=== PATIENT | male | born 1975 | race Caucasian/White ===

== ENCOUNTER 2022-07-17 14:05 | Outpatient (REF) | payer BC, SELFPAY | END 2022-07-17 14:06 | disposition home or self-care (01) | LOC: HO.BBR 14:05 | PROVIDERS: Visit Provider Internal Medicine Cardiovascular Disease | DX: Z13.89 Encounter for screening for other disorder (principal) ==

== ENCOUNTER → 2022-08-03 13:12 | Outpatient (BNV) | payer BC, SELFPAY | PROVIDERS: PCP Internal Medicine Cardiovascular Disease; Referring Provider Internal Medicine Cardiovascular Disease; Visit Provider Internal Medicine Medical Oncology | DX: E83.110 Hereditary hemochromatosis (principal) | CPT/HCPCS: 99204; 99213 ==

== ENCOUNTER 2022-08-14 12:37 | Outpatient (REF) | payer BC, SELFPAY ==
[2022-08-14 12:52] LABS: MANUAL DIFF FLAG NO
[2022-08-14 12:54] LABS: Basophils Absolute Auto 0.1 X10*3/uL (0.0-0.2); Basophils Percent Auto 0.4 % (0-2); Eosinophils Absolute Auto 0.1 X10*3/uL (0.0-0.4); Eosinophils Percent Auto 1.1 % (0-4); Hematocrit 45.4 % (42.0-52.0); Hemoglobin 15.8 g/dl (14.0-18.0); Imm Gran Abs Auto 0.04 X10*3/uL (0.00-0.03); Imm Gran Pct Auto 0.3 % (0.0-0.4); Lymphocytes Absolute Auto 3.1 X10*3/uL (1.2-4.9); Lymphocytes Percent Auto 26.2 % (20-40); Mean Corpuscular HGB Conc 34.8 g/dl (31.0-36.0); Mean Platelet Volume 9.3 fL (9.4-12.4); Monocytes Absolute Auto 0.7 X10*3/uL (0.1-1.2); Monocytes Percent Auto 5.6 % (2-11); Neutrophils Absolute Auto 7.8 x10*3/uL (2.0-8.3); Neutrophils Percent Auto 66.4 % (45-73); Platelet Count 213 X10*3/uL (160-400); Red Cell Distribution Width 12.5 % (11.0-16.0); White Blood Count 11.7 X10*3/uL (4.8-10.8)
[2022-08-14 13:32] LABS: Iron 107 mcg/dL (45-160); Percent Iron Saturation 39 % (15-50); Total Iron Binding Capacity 276 mcg/dL (228-428); Unsaturated Iron Binding 169 ug/dL
[2022-08-14 13:52] LABS: Ferritin 252 ng/mL (20-250)
== END 2022-08-14 12:38 | disposition home or self-care (01) ==
LOC: HO.BBR 12:37
PROVIDERS: Visit Provider Internal Medicine Medical Oncology
DX: E83.110 Hereditary hemochromatosis (principal)
CPT/HCPCS: 36415; 82728; 83540; 85025

== ENCOUNTER 2022-09-13 12:58 | Outpatient (REF) | payer BC, SELFPAY ==
[2022-09-13 13:16] LABS: MANUAL DIFF FLAG NO
[2022-09-13 13:19] LABS: Basophils Absolute Auto 0.1 X10*3/uL (0.0-0.2); Basophils Percent Auto 0.9 % (0-2); Eosinophils Absolute Auto 0.1 X10*3/uL (0.0-0.4); Eosinophils Percent Auto 1.4 % (0-4); Hematocrit 44.9 % (42.0-52.0); Imm Gran Abs Auto 0.02 X10*3/uL (0.00-0.03); Imm Gran Pct Auto 0.2 % (0.0-0.4); Lymphocytes Absolute Auto 3.3 X10*3/uL (1.2-4.9); Lymphocytes Percent Auto 38.5 % (20-40); Mean Corpuscular HGB Conc 35.6 g/dl (31.0-36.0); Mean Corpuscular Hemoglobin 31.3 pg (27.0-33.0); Mean Corpuscular Volume 87.7 fL (80.0-98.0); Mean Platelet Volume 9.6 fL (9.4-12.4); Monocytes Absolute Auto 0.7 X10*3/uL (0.1-1.2); Monocytes Percent Auto 7.9 % (2-11); Neutrophils Absolute Auto 4.3 x10*3/uL (2.0-8.3); Neutrophils Percent Auto 51.1 % (45-73); Platelet Count 207 X10*3/uL (160-400); Red Blood Count 5.12 X10*6/uL (4.60-5.80); Red Cell Distribution Width 12.1 % (11.0-16.0); White Blood Count 8.5 X10*3/uL (4.8-10.8)
[2022-09-13 14:03] LABS: Iron 114 mcg/dL (45-160); Percent Iron Saturation 41 % (15-50); Total Iron Binding Capacity 278 mcg/dL (228-428); Unsaturated Iron Binding 164 ug/dL
[2022-09-13 14:17] LABS: Ferritin 215 ng/mL (20-250)
== END 2022-09-13 12:59 | disposition home or self-care (01) ==
LOC: HO.BBR 12:58
PROVIDERS: Visit Provider Internal Medicine Medical Oncology
DX: E83.110 Hereditary hemochromatosis (principal)
CPT/HCPCS: 36415; 82728; 83540; 85025

== ENCOUNTER 2022-10-15 13:37 | Outpatient (REF) | payer BC, SELFPAY ==
[2022-10-15 14:06] LABS: MANUAL DIFF FLAG NO
[2022-10-15 14:11] LABS: Basophils Absolute Auto 0.1 X10*3/uL (0.0-0.2); Basophils Percent Auto 0.6 % (0-2); Eosinophils Absolute Auto 0.2 X10*3/uL (0.0-0.4); Eosinophils Percent Auto 1.6 % (0-4); Hematocrit 44.7 % (42.0-52.0); Hemoglobin 15.8 g/dl (14.0-18.0); Imm Gran Abs Auto 0.03 X10*3/uL (0.00-0.03); Imm Gran Pct Auto 0.3 % (0.0-0.4); Lymphocytes Absolute Auto 3.5 X10*3/uL (1.2-4.9); Mean Corpuscular HGB Conc 35.3 g/dl (31.0-36.0); Mean Corpuscular Hemoglobin 31.3 pg (27.0-33.0); Mean Corpuscular Volume 88.5 fL (80.0-98.0); Mean Platelet Volume 9.6 fL (9.4-12.4); Monocytes Absolute Auto 0.6 X10*3/uL (0.1-1.2); Monocytes Percent Auto 5.9 % (2-11); Neutrophils Absolute Auto 5.4 x10*3/uL (2.0-8.3); Neutrophils Percent Auto 55.6 % (45-73); Platelet Count 210 X10*3/uL (160-400); Red Blood Count 5.05 X10*6/uL (4.60-5.80); Red Cell Distribution Width 12.1 % (11.0-16.0); White Blood Count 9.8 X10*3/uL (4.8-10.8)
[2022-10-15 14:48] LABS: Iron 119 mcg/dL (45-160); Percent Iron Saturation 45 % (15-50); Total Iron Binding Capacity 267 mcg/dL (228-428); Unsaturated Iron Binding 148 ug/dL
[2022-10-15 14:59] LABS: Ferritin 211 ng/mL (20-250)
== END 2022-10-15 13:38 | disposition home or self-care (01) ==
LOC: HO.BBR 13:37
PROVIDERS: Visit Provider Internal Medicine Medical Oncology
DX: E83.110 Hereditary hemochromatosis (principal)
CPT/HCPCS: 36415; 82728; 83540; 85025

== ENCOUNTER 2022-11-15 08:48 | Outpatient (REF) | payer BC, SELFPAY ==
[2022-11-15 09:02] LABS: MANUAL DIFF FLAG NO
[2022-11-15 09:05] LABS: Basophils Absolute Auto 0.1 X10*3/uL (0.0-0.2); Basophils Percent Auto 0.8 % (0-2); Eosinophils Absolute Auto 0.2 X10*3/uL (0.0-0.4); Eosinophils Percent Auto 2.1 % (0-4); Hematocrit 46.1 % (42.0-52.0); Hemoglobin 16.7 g/dl (14.0-18.0); Imm Gran Abs Auto 0.02 X10*3/uL (0.00-0.03); Imm Gran Pct Auto 0.2 % (0.0-0.4); Lymphocytes Absolute Auto 3.2 X10*3/uL (1.2-4.9); Lymphocytes Percent Auto 37.4 % (20-40); Mean Corpuscular HGB Conc 36.2 g/dl (31.0-36.0); Mean Corpuscular Hemoglobin 31.8 pg (27.0-33.0); Mean Corpuscular Volume 87.8 fL (80.0-98.0); Mean Platelet Volume 9.4 fL (9.4-12.4); Monocytes Absolute Auto 0.6 X10*3/uL (0.1-1.2); Neutrophils Absolute Auto 4.5 x10*3/uL (2.0-8.3); Neutrophils Percent Auto 52.5 % (45-73); Platelet Count 218 X10*3/uL (160-400); Red Blood Count 5.25 X10*6/uL (4.60-5.80); Red Cell Distribution Width 11.9 % (11.0-16.0); White Blood Count 8.6 X10*3/uL (4.8-10.8)
[2022-11-15 10:51] LABS: Ferritin 220 ng/mL (20-250); Iron 107 mcg/dL (45-160); Percent Iron Saturation 44 % (15-50); Total Iron Binding Capacity 244 mcg/dL (228-428); Unsaturated Iron Binding 137 ug/dL
== END 2022-11-15 08:49 | disposition home or self-care (01) ==
LOC: HO.BBR 08:48
PROVIDERS: PCP Internal Medicine Cardiovascular Disease; Visit Provider Internal Medicine Medical Oncology
DX: E83.110 Hereditary hemochromatosis (principal)
CPT/HCPCS: 36415; 82728; 83540; 85025

== ENCOUNTER 2022-12-14 14:42 | Outpatient (REF) | payer BC, SELFPAY ==
[2022-12-14 14:58] LABS: MANUAL DIFF FLAG NO
[2022-12-14 15:01] LABS: Basophils Absolute Auto 0.1 X10*3/uL (0.0-0.2); Basophils Percent Auto 0.8 % (0-2); Eosinophils Absolute Auto 0.1 X10*3/uL (0.0-0.4); Eosinophils Percent Auto 1.6 % (0-4); Hemoglobin 15.9 g/dl (14.0-18.0); Imm Gran Abs Auto 0.02 X10*3/uL (0.00-0.03); Imm Gran Pct Auto 0.2 % (0.0-0.4); Lymphocytes Absolute Auto 3.2 X10*3/uL (1.2-4.9); Lymphocytes Percent Auto 38.5 % (20-40); Mean Corpuscular HGB Conc 35.3 g/dl (31.0-36.0); Mean Corpuscular Volume 87.7 fL (80.0-98.0); Mean Platelet Volume 9.6 fL (9.4-12.4); Monocytes Absolute Auto 0.6 X10*3/uL (0.1-1.2); Monocytes Percent Auto 7.8 % (2-11); Neutrophils Absolute Auto 4.2 x10*3/uL (2.0-8.3); Neutrophils Percent Auto 51.1 % (45-73); Platelet Count 208 X10*3/uL (160-400); Red Blood Count 5.13 X10*6/uL (4.60-5.80); Red Cell Distribution Width 11.9 % (11.0-16.0); White Blood Count 8.3 X10*3/uL (4.8-10.8)
[2022-12-14 15:43] LABS: Iron 126 mcg/dL (45-160); Percent Iron Saturation 49 % (15-50); Total Iron Binding Capacity 256 mcg/dL (228-428); Unsaturated Iron Binding 130 ug/dL
[2022-12-14 15:55] LABS: Ferritin 153 ng/mL (20-250)
== END 2022-12-14 14:43 | disposition home or self-care (01) ==
LOC: HO.BBR 14:42
PROVIDERS: Visit Provider Internal Medicine Medical Oncology
DX: E83.110 Hereditary hemochromatosis (principal)
CPT/HCPCS: 36415; 82728; 83540; 85025

== ENCOUNTER 2023-01-15 12:33 | Outpatient (REF) | payer BC, SELFPAY ==
[2023-01-15 12:45] LABS: MANUAL DIFF FLAG NO
[2023-01-15 12:49] LABS: Basophils Absolute Auto 0.1 X10*3/uL (0.0-0.2); Basophils Percent Auto 0.7 % (0-2); Eosinophils Absolute Auto 0.2 X10*3/uL (0.0-0.4); Eosinophils Percent Auto 2.1 % (0-4); Hematocrit 43.1 % (42.0-52.0); Hemoglobin 15.4 g/dl (14.0-18.0); Imm Gran Abs Auto 0.03 X10*3/uL (0.00-0.03); Imm Gran Pct Auto 0.4 % (0.0-0.4); Lymphocytes Absolute Auto 3.1 X10*3/uL (1.2-4.9); Lymphocytes Percent Auto 37.7 % (20-40); Mean Corpuscular HGB Conc 35.7 g/dl (31.0-36.0); Mean Corpuscular Hemoglobin 31.1 pg (27.0-33.0); Mean Corpuscular Volume 87.1 fL (80.0-98.0); Mean Platelet Volume 9.5 fL (9.4-12.4); Monocytes Absolute Auto 0.6 X10*3/uL (0.1-1.2); Monocytes Percent Auto 7.2 % (2-11); Neutrophils Absolute Auto 4.2 x10*3/uL (2.0-8.3); Neutrophils Percent Auto 51.9 % (45-73); Platelet Count 209 X10*3/uL (160-400); Red Blood Count 4.95 X10*6/uL (4.60-5.80); Red Cell Distribution Width 12.2 % (11.0-16.0); White Blood Count 8.1 X10*3/uL (4.8-10.8)
[2023-01-15 14:09] LABS: Iron 121 mcg/dL (45-160); Percent Iron Saturation 51 % (15-50); Total Iron Binding Capacity 235 mcg/dL (228-428); Unsaturated Iron Binding 114 ug/dL
[2023-01-15 14:23] LABS: Ferritin 149 ng/mL (20-250)
== END 2023-01-15 12:34 | disposition home or self-care (01) ==
LOC: HO.BBR 12:33
PROVIDERS: Visit Provider Internal Medicine Medical Oncology
DX: E83.110 Hereditary hemochromatosis (principal)
CPT/HCPCS: 36415; 82728; 83540; 85025

== ENCOUNTER 2023-02-11 12:43 | Outpatient (REF) | payer BC, SELFPAY ==
[2023-02-11 12:58] LABS: MANUAL DIFF FLAG NO
[2023-02-11 13:01] LABS: Basophils Absolute Auto 0.1 X10*3/uL (0.0-0.2); Basophils Percent Auto 0.6 % (0-2); Eosinophils Absolute Auto 0.1 X10*3/uL (0.0-0.4); Eosinophils Percent Auto 0.9 % (0-4); Hematocrit 42.6 % (42.0-52.0); Hemoglobin 15.3 g/dl (14.0-18.0); Imm Gran Abs Auto 0.04 X10*3/uL (0.00-0.03); Imm Gran Pct Auto 0.3 % (0.0-0.4); Lymphocytes Percent Auto 25.5 % (20-40); Mean Corpuscular HGB Conc 35.9 g/dl (31.0-36.0); Mean Corpuscular Hemoglobin 32.3 pg (27.0-33.0); Mean Corpuscular Volume 89.9 fL (80.0-98.0); Monocytes Absolute Auto 0.6 X10*3/uL (0.1-1.2); Monocytes Percent Auto 5.2 % (2-11); Neutrophils Percent Auto 67.5 % (45-73); Platelet Count 211 X10*3/uL (160-400); Red Blood Count 4.74 X10*6/uL (4.60-5.80); Red Cell Distribution Width 12.5 % (11.0-16.0); White Blood Count 11.8 X10*3/uL (4.8-10.8)
[2023-02-11 15:16] LABS: Iron 95 mcg/dL (45-160); Percent Iron Saturation 39 % (15-50); Total Iron Binding Capacity 242 mcg/dL (228-428); Unsaturated Iron Binding 147 ug/dL
[2023-02-11 15:18] LABS: Ferritin 140 ng/mL (20-250)
== END 2023-02-11 12:44 | disposition home or self-care (01) ==
LOC: HO.BBR 12:43
PROVIDERS: Visit Provider Internal Medicine Medical Oncology
DX: E83.110 Hereditary hemochromatosis (principal)
CPT/HCPCS: 36415; 82728; 83540; 85025

== ENCOUNTER 2023-03-14 13:44 | Outpatient (REF) | payer BC, SELFPAY ==
[2023-03-14 13:53] LABS: MANUAL DIFF FLAG NO
[2023-03-14 13:54] LABS: Basophils Absolute Auto 0.1 X10*3/uL (0.0-0.2); Basophils Percent Auto 0.7 % (0-2); Eosinophils Absolute Auto 0.2 X10*3/uL (0.0-0.4); Eosinophils Percent Auto 1.6 % (0-4); Hemoglobin 16.8 g/dl (14.0-18.0); Imm Gran Abs Auto 0.04 X10*3/uL (0.00-0.03); Imm Gran Pct Auto 0.4 % (0.0-0.4); Lymphocytes Absolute Auto 3.8 X10*3/uL (1.2-4.9); Lymphocytes Percent Auto 39.9 % (20-40); Mean Corpuscular HGB Conc 35.7 g/dl (31.0-36.0); Mean Corpuscular Hemoglobin 31.3 pg (27.0-33.0); Mean Corpuscular Volume 87.5 fL (80.0-98.0); Mean Platelet Volume 9.7 fL (9.4-12.4); Monocytes Absolute Auto 0.7 X10*3/uL (0.1-1.2); Monocytes Percent Auto 7.1 % (2-11); Neutrophils Absolute Auto 4.8 x10*3/uL (2.0-8.3); Neutrophils Percent Auto 50.3 % (45-73); Platelet Count 236 X10*3/uL (160-400); Red Blood Count 5.37 X10*6/uL (4.60-5.80); Red Cell Distribution Width 12.3 % (11.0-16.0); White Blood Count 9.5 X10*3/uL (4.8-10.8)
[2023-03-14 14:39] LABS: Iron 103 mcg/dL (45-160); Percent Iron Saturation 39 % (15-50); Total Iron Binding Capacity 263 mcg/dL (228-428); Unsaturated Iron Binding 160 ug/dL
[2023-03-14 14:54] LABS: Ferritin 132 ng/mL (20-250)
== END 2023-03-14 13:45 | disposition home or self-care (01) ==
LOC: HO.BBR 13:44
PROVIDERS: Visit Provider Internal Medicine Medical Oncology
DX: E83.110 Hereditary hemochromatosis (principal)
CPT/HCPCS: 36415; 82728; 83540; 85025

== ENCOUNTER 2023-04-09 12:43 | Outpatient (REF) | payer BC, SELFPAY ==
[2023-04-09 12:58] LABS: MANUAL DIFF FLAG NO
[2023-04-09 13:02] LABS: Basophils Absolute Auto 0.1 X10*3/uL (0.0-0.2); Basophils Percent Auto 0.7 % (0-2); Eosinophils Absolute Auto 0.1 X10*3/uL (0.0-0.4); Eosinophils Percent Auto 1.7 % (0-4); Hematocrit 44.2 % (42.0-52.0); Hemoglobin 15.7 g/dl (14.0-18.0); Imm Gran Abs Auto 0.02 X10*3/uL (0.00-0.03); Imm Gran Pct Auto 0.2 % (0.0-0.4); Lymphocytes Absolute Auto 2.9 X10*3/uL (1.2-4.9); Lymphocytes Percent Auto 34.7 % (20-40); Mean Corpuscular HGB Conc 35.5 g/dl (31.0-36.0); Mean Corpuscular Hemoglobin 30.9 pg (27.0-33.0); Mean Platelet Volume 9.6 fL (9.4-12.4); Monocytes Absolute Auto 0.5 X10*3/uL (0.1-1.2); Monocytes Percent Auto 6.6 % (2-11); Neutrophils Absolute Auto 4.6 x10*3/uL (2.0-8.3); Neutrophils Percent Auto 56.1 % (45-73); Platelet Count 207 X10*3/uL (160-400); Red Blood Count 5.08 X10*6/uL (4.60-5.80); White Blood Count 8.2 X10*3/uL (4.8-10.8)
[2023-04-09 14:31] LABS: Iron 100 mcg/dL (45-160); Percent Iron Saturation 40 % (15-50); Total Iron Binding Capacity 248 mcg/dL (228-428); Unsaturated Iron Binding 148 ug/dL
[2023-04-09 14:49] LABS: Ferritin 100 ng/mL (20-250)
== END 2023-04-09 12:44 | disposition home or self-care (01) ==
LOC: HO.BBR 12:43
PROVIDERS: PCP Internal Medicine Cardiovascular Disease; Visit Provider Internal Medicine Medical Oncology
DX: E83.110 Hereditary hemochromatosis (principal)
CPT/HCPCS: 36415; 82728; 83540; 85025

== ENCOUNTER 2023-05-13 12:48 | Outpatient (REF) | payer BC, SELFPAY ==
[2023-05-13 13:04] LABS: MANUAL DIFF FLAG NO
[2023-05-13 13:07] LABS: Basophils Percent Auto 0.4 % (0-2); Eosinophils Absolute Auto 0.1 X10*3/uL (0.0-0.4); Eosinophils Percent Auto 1.3 % (0-4); Hematocrit 44.1 % (42.0-52.0); Hemoglobin 15.7 g/dl (14.0-18.0); Imm Gran Abs Auto 0.02 X10*3/uL (0.00-0.03); Imm Gran Pct Auto 0.2 % (0.0-0.4); Lymphocytes Absolute Auto 2.9 X10*3/uL (1.2-4.9); Lymphocytes Percent Auto 30.2 % (20-40); Mean Corpuscular HGB Conc 35.6 g/dl (31.0-36.0); Mean Corpuscular Hemoglobin 31.3 pg (27.0-33.0); Mean Corpuscular Volume 87.8 fL (80.0-98.0); Mean Platelet Volume 9.5 fL (9.4-12.4); Monocytes Absolute Auto 0.6 X10*3/uL (0.1-1.2); Monocytes Percent Auto 6.8 % (2-11); Neutrophils Absolute Auto 5.8 x10*3/uL (2.0-8.3); Neutrophils Percent Auto 61.1 % (45-73); Platelet Count 214 X10*3/uL (160-400); Red Blood Count 5.02 X10*6/uL (4.60-5.80); Red Cell Distribution Width 12.5 % (11.0-16.0); White Blood Count 9.4 X10*3/uL (4.8-10.8)
[2023-05-13 14:44] LABS: Ferritin 112 ng/mL (20-250); Iron 70 mcg/dL (45-160); Percent Iron Saturation 28 % (15-50); Total Iron Binding Capacity 251 mcg/dL (228-428); Unsaturated Iron Binding 181 ug/dL
== END 2023-05-13 12:49 | disposition home or self-care (01) ==
LOC: HO.BBR 12:48
PROVIDERS: Visit Provider Internal Medicine Medical Oncology
DX: E83.110 Hereditary hemochromatosis (principal)
CPT/HCPCS: 36415; 82728; 83540; 85025

== ENCOUNTER 2023-06-14 12:51 | Outpatient (REF) | payer BC, SELFPAY ==
[2023-06-14 13:02] LABS: MANUAL DIFF FLAG NO
[2023-06-14 13:05] LABS: Basophils Absolute Auto 0.1 X10*3/uL (0.0-0.2); Basophils Percent Auto 0.5 % (0-2); Eosinophils Absolute Auto 0.2 X10*3/uL (0.0-0.4); Eosinophils Percent Auto 1.9 % (0-4); Hematocrit 44.7 % (42.0-52.0); Hemoglobin 15.8 g/dl (14.0-18.0); Imm Gran Abs Auto 0.02 X10*3/uL (0.00-0.03); Imm Gran Pct Auto 0.2 % (0.0-0.4); Lymphocytes Absolute Auto 3.3 X10*3/uL (1.2-4.9); Lymphocytes Percent Auto 34.6 % (20-40); Mean Corpuscular HGB Conc 35.3 g/dl (31.0-36.0); Mean Corpuscular Hemoglobin 31.2 pg (27.0-33.0); Mean Corpuscular Volume 88.2 fL (80.0-98.0); Mean Platelet Volume 9.5 fL (9.4-12.4); Monocytes Absolute Auto 0.7 X10*3/uL (0.1-1.2); Monocytes Percent Auto 7.3 % (2-11); Neutrophils Absolute Auto 5.4 x10*3/uL (2.0-8.3); Neutrophils Percent Auto 55.5 % (45-73); Platelet Count 222 X10*3/uL (160-400); Red Blood Count 5.07 X10*6/uL (4.60-5.80); Red Cell Distribution Width 12.2 % (11.0-16.0); White Blood Count 9.7 X10*3/uL (4.8-10.8)
[2023-06-14 14:44] LABS: Iron 121 mcg/dL (45-160); Percent Iron Saturation 46 % (15-50); Total Iron Binding Capacity 261 mcg/dL (228-428); Unsaturated Iron Binding 140 ug/dL
[2023-06-14 15:00] LABS: Ferritin 116 ng/mL (20-250)
== END 2023-06-14 12:52 | disposition home or self-care (01) ==
LOC: HO.BBR 12:51
PROVIDERS: PCP Internal Medicine Cardiovascular Disease; Visit Provider Internal Medicine Medical Oncology
DX: E83.110 Hereditary hemochromatosis (principal)
CPT/HCPCS: 36415; 82728; 83540; 85025

== ENCOUNTER 2023-07-12 13:53 | Outpatient (REF) | payer BC, SELFPAY ==
[2023-07-12 14:02] LABS: MANUAL DIFF FLAG NO
[2023-07-12 14:04] LABS: Basophils Absolute Auto 0.1 X10*3/uL (0.0-0.2); Basophils Percent Auto 0.5 % (0-2); Eosinophils Absolute Auto 0.2 X10*3/uL (0.0-0.4); Hematocrit 43.5 % (42.0-52.0); Hemoglobin 15.8 g/dl (14.0-18.0); Imm Gran Abs Auto 0.03 X10*3/uL (0.00-0.03); Imm Gran Pct Auto 0.3 % (0.0-0.4); Lymphocytes Absolute Auto 2.6 X10*3/uL (1.2-4.9); Lymphocytes Percent Auto 28.4 % (20-40); Mean Corpuscular HGB Conc 36.3 g/dl (31.0-36.0); Mean Corpuscular Hemoglobin 31.7 pg (27.0-33.0); Mean Corpuscular Volume 87.3 fL (80.0-98.0); Mean Platelet Volume 9.4 fL (9.4-12.4); Monocytes Absolute Auto 0.7 X10*3/uL (0.1-1.2); Monocytes Percent Auto 7.6 % (2-11); Neutrophils Absolute Auto 5.6 x10*3/uL (2.0-8.3); Neutrophils Percent Auto 61.2 % (45-73); Platelet Count 215 X10*3/uL (160-400); Red Blood Count 4.98 X10*6/uL (4.60-5.80); Red Cell Distribution Width 12.5 % (11.0-16.0); White Blood Count 9.2 X10*3/uL (4.8-10.8)
[2023-07-12 16:24] LABS: Iron 116 mcg/dL (45-160); Percent Iron Saturation 44 % (15-50); Total Iron Binding Capacity 261 mcg/dL (228-428); Unsaturated Iron Binding 145 ug/dL
[2023-07-12 16:57] LABS: Ferritin 96 ng/mL (20-250)
== END 2023-07-12 13:54 | disposition home or self-care (01) ==
LOC: HO.BBR 13:53
PROVIDERS: PCP Internal Medicine Cardiovascular Disease; Visit Provider Internal Medicine Medical Oncology
DX: E83.110 Hereditary hemochromatosis (principal)
CPT/HCPCS: 36415; 82728; 83540; 85025

== ENCOUNTER 2023-08-16 13:01 | Outpatient (REF) | payer BC, SELFPAY | END 2023-08-16 13:02 | disposition home or self-care (01) | LOC: HO.BBR 13:01 | PROVIDERS: PCP Internal Medicine Cardiovascular Disease; Visit Provider Internal Medicine Medical Oncology | DX: Z13.89 Encounter for screening for other disorder (principal) ==

== ENCOUNTER 2023-09-16 12:59 | Outpatient (REF) | payer BC, SELFPAY | END 2023-09-16 13:00 | disposition home or self-care (01) | LOC: HO.BBR 12:59 | PROVIDERS: PCP Internal Medicine Cardiovascular Disease; Visit Provider Internal Medicine Medical Oncology | DX: Z13.89 Encounter for screening for other disorder (principal) ==

== ENCOUNTER 2023-10-17 13:00 | Outpatient (REF) | payer BC, SELFPAY | END 2023-10-17 13:01 | disposition home or self-care (01) | LOC: HO.BBR 13:00 | PROVIDERS: PCP Internal Medicine Cardiovascular Disease; Visit Provider Internal Medicine Medical Oncology | DX: Z13.89 Encounter for screening for other disorder (principal) ==

== ENCOUNTER 2023-11-15 08:36 | Outpatient (REF) | payer BC, SELFPAY | END 2023-11-15 08:37 | disposition home or self-care (01) | LOC: HO.BBR 08:36 | PROVIDERS: PCP Internal Medicine Cardiovascular Disease; Visit Provider Internal Medicine Medical Oncology | DX: Z13.89 Encounter for screening for other disorder (principal) ==

== ENCOUNTER 2023-12-16 12:47 | Outpatient (REF) | payer BC, SELFPAY | END 2023-12-16 12:48 | disposition home or self-care (01) | LOC: HO.BBR 12:47 | PROVIDERS: PCP Internal Medicine Cardiovascular Disease; Visit Provider Internal Medicine Medical Oncology | DX: Z13.89 Encounter for screening for other disorder (principal) ==

== ENCOUNTER 2024-01-13 13:37 | Outpatient (REF) | payer BC, SELFPAY | END 2024-01-13 13:38 | disposition home or self-care (01) | LOC: HO.BBR 13:37 | PROVIDERS: PCP Internal Medicine Cardiovascular Disease; Visit Provider Internal Medicine Medical Oncology | DX: Z13.89 Encounter for screening for other disorder (principal) ==

== ENCOUNTER 2024-02-10 13:44 | Outpatient (REF) | payer BC, SELFPAY ==
[2024-02-10 15:58] LABS: Iron 57 mcg/dL (45-160); Percent Iron Saturation 24 % (15-50); Total Iron Binding Capacity 235 mcg/dL (228-428); Unsaturated Iron Binding 178 ug/dL
[2024-02-10 16:14] LABS: Ferritin 18 ng/mL (20-250)
== END 2024-02-10 13:45 | disposition home or self-care (01) ==
LOC: HO.BBR 13:44
PROVIDERS: PCP Internal Medicine Cardiovascular Disease; Visit Provider Internal Medicine Medical Oncology
DX: E83.110 Hereditary hemochromatosis (principal)
CPT/HCPCS: 36415; 82728; 83540

== ENCOUNTER 2024-04-06 13:36 | Outpatient (REF) | payer BC, SELFPAY ==
[2024-04-06 15:09] LABS: Iron 78 mcg/dL (45-160); Percent Iron Saturation 31 % (15-50); Total Iron Binding Capacity 254 mcg/dL (228-428); Unsaturated Iron Binding 176 ug/dL
[2024-04-06 15:24] LABS: Ferritin 18 ng/mL (20-250)
== END 2024-04-06 13:37 | disposition home or self-care (01) ==
LOC: HO.BBR 13:36
PROVIDERS: PCP Family Medicine; Visit Provider Internal Medicine Medical Oncology
DX: E83.110 Hereditary hemochromatosis (principal)
CPT/HCPCS: 36415; 82728; 83540

== ENCOUNTER 2024-06-08 13:59 | Outpatient (REF) | payer BC, SELFPAY ==
[2024-06-08 15:16] LABS: Iron 101 mcg/dL (45-160); Percent Iron Saturation 42 % (15-50); Total Iron Binding Capacity 239 mcg/dL (228-428); Unsaturated Iron Binding 138 ug/dL
[2024-06-08 15:30] LABS: Ferritin 31 ng/mL (20-250)
== END 2024-06-08 14:00 | disposition home or self-care (01) ==
LOC: HO.BBR 13:59
PROVIDERS: PCP Family Medicine; Visit Provider Internal Medicine Medical Oncology
DX: E83.110 Hereditary hemochromatosis (principal)
CPT/HCPCS: 36415; 82728; 83540

== ENCOUNTER 2024-06-29 13:02 | Outpatient (REF) | payer BC, SELFPAY ==
--- NOTE | ~2024-06-29 | US_ITS ---
EXAMINATION: US ABDOMEN LIMITED WITH LIVER ELASTOGRAPHY CLINICAL INFORMATION: Hepatocellular carcinoma surveillance; history of cirrhosis and hemochromatosis. COMPARISON: None available. TECHNIQUE: Real-time imaging of the abdominal viscera. Noninvasive ultrasound liver fibrosis assessment is performed using [employer]fa ElastPQ point quantification shear wave elastography (pSWE) with a 5 MHz transducer. Multiple elastography samples are obtained. FINDINGS: PANCREAS: Limited. The visualized pancreatic head and body are normal in appearance. The remainder of the pancreas is obscured from visualization by the overlying bowel gas. LIVER: The liver demonstrates normal size, contour and increased echogenicity. No focal solid lesion or intrahepatic biliary duct dilatation. Within the right lobe, benign 7 mm and 2.1 cm simple cysts are seen. The right lobe measures 18.1 cm in length. The left lobe measures 12.6 cm in length. There is hepatopedal portal venous flow. Shear wave elastography provides a median stiffness of 1.36 m/s (reference: normal median stiffness is 0.81 - 1.22 m/s). The IQR/median stiffness to assess sampling precision is 0.09 (reference: optimal IQR/median stiffness is under 0.3). GALLBLADDER: Normal. The gallbladder is physiologically distended without evidence of stones, sludge, polyps, wall thickening or pericholecystic fluid. COMMON BILE DUCT: Normal in caliber measuring 0.6 cm in diameter. RIGHT KIDNEY: There is a hypertrophic column of Kashif. A 5 mm nonobstructing interpolar calculus is seen. No hydronephrosis. No focal parenchymal lesions. The kidney measures 12.1 cm in maximum dimension. FREE FLUID: None. US/US abdomen yoo w elastography IMPRESSION: 1. There is hepatomegaly. 2. Elastography: Liver elastography measurements are consistent with a minimal risk for clinically significant liver fibrosis (METAVIR Stage F0-F1). 3. A 5 mm nonobstructing mid right renal calculus is seen. 4. Technically limited ultrasound examination of the pancreas. Electronically signed by: Clark Mittal MD 07/16/2024 11:21 AM EDT
== END 2024-06-29 13:03 | disposition home or self-care (01) ==
LOC: HO.US 13:02
PROVIDERS: PCP Family Medicine; Visit Provider Internal Medicine Medical Oncology
DX: K74.60 Unspecified cirrhosis of liver (principal)
CPT/HCPCS: 76705; 76981

== ENCOUNTER 2024-08-24 14:48 | Outpatient (REF) | payer BC, SELFPAY ==
[2024-08-24 16:00] LABS: Iron 108 mcg/dL (45-160); Percent Iron Saturation 42 % (15-50); Total Iron Binding Capacity 255 mcg/dL (228-428); Unsaturated Iron Binding 147 ug/dL
[2024-08-24 16:19] LABS: Ferritin 36 ng/mL (20-250)
== END 2024-08-24 14:49 | disposition home or self-care (01) ==
LOC: HO.BBR 14:48
PROVIDERS: PCP Family Medicine; Visit Provider Internal Medicine Medical Oncology
DX: E83.110 Hereditary hemochromatosis (principal)
CPT/HCPCS: 36415; 82728; 83540

== ENCOUNTER 2024-11-09 08:05 | Outpatient (REF) | payer BC, SELFPAY ==
[2024-11-09 10:04] LABS: Iron 106 mcg/dL (45-160); Percent Iron Saturation 42 % (15-50); Total Iron Binding Capacity 251 mcg/dL (228-428); Unsaturated Iron Binding 145 ug/dL
[2024-11-09 10:20] LABS: Ferritin 34 ng/mL (20-250)
== END 2024-11-09 08:06 | disposition home or self-care (01) ==
LOC: HO.BBR 08:05
PROVIDERS: PCP Family Medicine; Visit Provider Internal Medicine Medical Oncology
DX: E83.110 Hereditary hemochromatosis (principal)
CPT/HCPCS: 36415; 82728; 83540

== ENCOUNTER 2025-01-25 13:57 | Outpatient (REF) | payer BC, SELFPAY ==
[2025-01-25 14:07] LABS: MANUAL DIFF FLAG NO
[2025-01-25 14:08] LABS: Basophils Absolute Auto 0.1 X10*3/uL (0.0-0.2); Basophils Percent Auto 0.6 % (0-2); Eosinophils Absolute Auto 0.1 X10*3/uL (0.0-0.4); Hematocrit 43.5 % (42.0-52.0); Imm Gran Abs Auto 0.03 X10*3/uL (0.00-0.03); Imm Gran Pct Auto 0.3 % (0.0-0.4); Lymphocytes Percent Auto 29.9 % (20-40); Mean Corpuscular HGB Conc 36.8 g/dl (31.0-36.0); Mean Corpuscular Hemoglobin 31.5 pg (27.0-33.0); Mean Corpuscular Volume 85.6 fL (80.0-98.0); Mean Platelet Volume 9.2 fL (9.4-12.4); Monocytes Absolute Auto 0.8 X10*3/uL (0.1-1.2); Monocytes Percent Auto 7.8 % (2-11); Neutrophils Percent Auto 60.4 % (45-73); Platelet Count 221 X10*3/uL (160-400); Red Blood Count 5.08 X10*6/uL (4.60-5.80); Red Cell Distribution Width 12.4 % (11.0-16.0); White Blood Count 9.9 X10*3/uL (4.8-10.8)
[2025-01-25 14:59] LABS: Iron 104 mcg/dL (45-160); Percent Iron Saturation 39 % (15-50); Total Iron Binding Capacity 265 mcg/dL (228-428); Unsaturated Iron Binding 161 ug/dL
[2025-01-25 15:09] LABS: Ferritin 45 ng/mL (20-250)
== END 2025-01-25 13:58 | disposition home or self-care (01) ==
LOC: HO.BBR 13:57
PROVIDERS: Visit Provider Internal Medicine Medical Oncology
DX: E83.110 Hereditary hemochromatosis (principal)
CPT/HCPCS: 36415; 82728; 83540; 85018; 85025; 99195

== ENCOUNTER 2025-03-09 13:50 | Outpatient (REF) | payer BC, SELFPAY ==
[2025-03-09 13:59] LABS: MANUAL DIFF FLAG NO
[2025-03-09 14:02] LABS: Basophils Absolute Auto 0.1 X10*3/uL (0.0-0.2); Basophils Percent Auto 0.5 % (0-2); Eosinophils Absolute Auto 0.1 X10*3/uL (0.0-0.4); Eosinophils Percent Auto 1.2 % (0-4); Hematocrit 41.1 % (42.0-52.0); Hemoglobin 15.2 g/dl (14.0-18.0); Imm Gran Abs Auto 0.03 X10*3/uL (0.00-0.03); Imm Gran Pct Auto 0.3 % (0.0-0.4); Lymphocytes Absolute Auto 2.9 X10*3/uL (1.2-4.9); Lymphocytes Percent Auto 30.1 % (20-40); Mean Corpuscular Hemoglobin 31.6 pg (27.0-33.0); Mean Corpuscular Volume 85.4 fL (80.0-98.0); Mean Platelet Volume 9.1 fL (9.4-12.4); Monocytes Absolute Auto 0.7 X10*3/uL (0.1-1.2); Monocytes Percent Auto 7.2 % (2-11); Neutrophils Absolute Auto 5.8 x10*3/uL (2.0-8.3); Neutrophils Percent Auto 60.7 % (45-73); Platelet Count 241 X10*3/uL (160-400); Red Blood Count 4.81 X10*6/uL (4.60-5.80); Red Cell Distribution Width 12.3 % (11.0-16.0); White Blood Count 9.5 X10*3/uL (4.8-10.8)
[2025-03-09 14:48] LABS: Iron 92 mcg/dL (45-160); Percent Iron Saturation 36 % (15-50); Total Iron Binding Capacity 254 mcg/dL (228-428); Unsaturated Iron Binding 162 ug/dL
[2025-03-09 15:04] LABS: Ferritin 41 ng/mL (20-250)
== END 2025-03-09 13:51 | disposition home or self-care (01) ==
LOC: HO.BBR 13:50
PROVIDERS: PCP Family Medicine; Visit Provider Internal Medicine Medical Oncology
DX: E83.110 Hereditary hemochromatosis (principal)
CPT/HCPCS: 36415; 82728; 83540; 85025

== ENCOUNTER 2025-05-03 12:46 | Outpatient (REF) | payer BC, SELFPAY ==
[2025-05-03 13:02] LABS: Basophils Absolute Auto 0.1 X10*3/uL (0.0-0.2); Basophils Percent Auto 0.6 % (0-2); Eosinophils Absolute Auto 0.1 X10*3/uL (0.0-0.4); Eosinophils Percent Auto 0.8 % (0-4); Hematocrit 41.3 % (42.0-52.0); Hemoglobin 15.2 g/dl (14.0-18.0); Imm Gran Abs Auto 0.02 X10*3/uL (0.00-0.03); Imm Gran Pct Auto 0.2 % (0.0-0.4); Lymphocytes Absolute Auto 2.9 X10*3/uL (1.2-4.9); Lymphocytes Percent Auto 31.4 % (20-40); MANUAL DIFF FLAG NO; Mean Corpuscular HGB Conc 36.8 g/dl (31.0-36.0); Mean Corpuscular Hemoglobin 31.5 pg (27.0-33.0); Mean Corpuscular Volume 85.5 fL (80.0-98.0); Mean Platelet Volume 9.4 fL (9.4-12.4); Monocytes Absolute Auto 0.7 X10*3/uL (0.1-1.2); Monocytes Percent Auto 7.7 % (2-11); Neutrophils Absolute Auto 5.4 x10*3/uL (2.0-8.3); Neutrophils Percent Auto 59.3 % (45-73); Platelet Count 242 X10*3/uL (160-400); Red Blood Count 4.83 X10*6/uL (4.60-5.80); Red Cell Distribution Width 12.5 % (11.0-16.0); White Blood Count 9.1 X10*3/uL (4.8-10.8)
[2025-05-03 13:57] LABS: Iron 105 mcg/dL (45-160); Percent Iron Saturation 39 % (15-50); Total Iron Binding Capacity 270 mcg/dL (228-428); Unsaturated Iron Binding 165 ug/dL
[2025-05-03 14:06] LABS: Ferritin 39 ng/mL (20-250)
== END 2025-05-03 12:47 | disposition home or self-care (01) ==
LOC: HO.BBR 12:46
PROVIDERS: Visit Provider Internal Medicine
DX: E83.110 Hereditary hemochromatosis (principal)
CPT/HCPCS: 36415; 82728; 83540; 85025

== ENCOUNTER 2025-06-14 13:03 | Outpatient (REF) | payer BC, SELFPAY ==
[2025-06-14 13:14] LABS: MANUAL DIFF FLAG NO
[2025-06-14 13:15] LABS: Hematocrit 42.3 % (42.0-52.0); Hemoglobin 15.3 g/dl (14.0-18.0); Imm Gran Abs Auto 0.03 X10*3/uL (0.00-0.03); Imm Gran Pct Auto 0.3 % (0.0-0.4); Lymphocytes Absolute Auto 2.8 X10*3/uL (1.2-4.9); Mean Corpuscular HGB Conc 36.2 g/dl (31.0-36.0); Mean Corpuscular Hemoglobin 31.4 pg (27.0-33.0); Mean Corpuscular Volume 86.9 fL (80.0-98.0); NRBC Abs Auto 0.000 X10*3/uL (0.0-0.012); NRBC Pct Auto 0.0 /100WBC (0.0-0.2); Platelet Count 229 X10*3/uL (160-400); Red Blood Count 4.87 X10*6/uL (4.60-5.80); White Blood Count 10.6 X10*3/uL (4.8-10.8)
[2025-06-14 14:33] LABS: Iron 85 mcg/dL (45-160); Percent Iron Saturation 35 % (15-50); Total Iron Binding Capacity 245 mcg/dL (228-428); Unsaturated Iron Binding 160 ug/dL
[2025-06-14 14:51] LABS: Ferritin 38 ng/mL (20-250)
== END 2025-06-14 13:04 | disposition home or self-care (01) ==
LOC: HO.BBR 13:03
PROVIDERS: PCP Family Medicine; Visit Provider Internal Medicine Medical Oncology
DX: E83.110 Hereditary hemochromatosis (principal)
CPT/HCPCS: 36415; 82728; 83540; 85025

== ENCOUNTER 2025-07-26 13:05 | Outpatient (REF) | payer BC, SELFPAY ==
[2025-07-26 13:15] LABS: MANUAL DIFF FLAG NO
[2025-07-26 13:18] LABS: Hematocrit 40.9 % (42.0-52.0); Hemoglobin 14.9 g/dl (14.0-18.0); Imm Gran Abs Auto 0.04 X10*3/uL (0.00-0.03); Imm Gran Pct Auto 0.4 % (0.0-0.4); Lymphocytes Absolute Auto 2.3 X10*3/uL (1.2-4.9); Mean Corpuscular HGB Conc 36.4 g/dl (31.0-36.0); Mean Corpuscular Hemoglobin 31.4 pg (27.0-33.0); Mean Corpuscular Volume 86.1 fL (80.0-98.0); NRBC Abs Auto 0.000 X10*3/uL (0.0-0.012); NRBC Pct Auto 0.0 /100WBC (0.0-0.2); Platelet Count 214 X10*3/uL (160-400); Red Blood Count 4.75 X10*6/uL (4.60-5.80); White Blood Count 9.8 X10*3/uL (4.8-10.8)
[2025-07-26 14:23] LABS: Iron 101 mcg/dL (45-160); Percent Iron Saturation 40 % (15-50); Total Iron Binding Capacity 251 mcg/dL (228-428); Unsaturated Iron Binding 150 ug/dL
[2025-07-26 14:54] LABS: Ferritin 32 ng/mL (20-250)
== END 2025-07-26 13:06 | disposition home or self-care (01) ==
LOC: HO.BBR 13:05
PROVIDERS: PCP Family Medicine; Visit Provider Internal Medicine Medical Oncology
DX: E83.110 Hereditary hemochromatosis (principal)
CPT/HCPCS: 36415; 82728; 83540; 85025

== ENCOUNTER 2025-09-06 12:55 | Outpatient (REF) | payer BC, SELFPAY ==
[2025-09-06 13:05] LABS: MANUAL DIFF FLAG NO
[2025-09-06 13:06] LABS: Hematocrit 44.5 % (42.0-52.0); Hemoglobin 15.9 g/dl (14.0-18.0); Imm Gran Abs Auto 0.04 X10*3/uL (0.00-0.03); Imm Gran Pct Auto 0.4 % (0.0-0.4); Lymphocytes Absolute Auto 2.8 X10*3/uL (1.2-4.9); Mean Corpuscular HGB Conc 35.7 g/dl (31.0-36.0); Mean Corpuscular Hemoglobin 31.1 pg (27.0-33.0); Mean Corpuscular Volume 87.1 fL (80.0-98.0); NRBC Abs Auto 0.000 X10*3/uL (0.0-0.012); NRBC Pct Auto 0.0 /100WBC (0.0-0.2); Platelet Count 238 X10*3/uL (160-400); Red Blood Count 5.11 X10*6/uL (4.60-5.80); White Blood Count 10.1 X10*3/uL (4.8-10.8)
[2025-09-06 14:12] LABS: Iron 106 mcg/dL (45-160); Percent Iron Saturation 42 % (15-50); Total Iron Binding Capacity 251 mcg/dL (228-428); Unsaturated Iron Binding 145 ug/dL
[2025-09-06 14:14] LABS: Ferritin 37 ng/mL (20-250)
== END 2025-09-06 12:56 | disposition home or self-care (01) ==
LOC: HO.BBR 12:55
PROVIDERS: PCP Family Medicine; Visit Provider Internal Medicine Medical Oncology
DX: E83.110 Hereditary hemochromatosis (principal)
CPT/HCPCS: 36415; 82728; 83540; 85025

== ENCOUNTER 2025-10-18 13:02 | Outpatient (REF) | payer BC, SELFPAY ==
[2025-10-18 13:11] LABS: MANUAL DIFF FLAG NO
[2025-10-18 13:13] LABS: Hematocrit 42.1 % (42.0-52.0); Hemoglobin 15.2 g/dl (14.0-18.0); Imm Gran Abs Auto 0.02 X10*3/uL (0.00-0.03); Imm Gran Pct Auto 0.2 % (0.0-0.4); Lymphocytes Absolute Auto 2.4 X10*3/uL (1.2-4.9); Mean Corpuscular HGB Conc 36.1 g/dl (31.0-36.0); Mean Corpuscular Hemoglobin 31.0 pg (27.0-33.0); Mean Corpuscular Volume 85.9 fL (80.0-98.0); NRBC Abs Auto 0.000 X10*3/uL (0.0-0.012); NRBC Pct Auto 0.0 /100WBC (0.0-0.2); Platelet Count 243 X10*3/uL (160-400); Red Blood Count 4.90 X10*6/uL (4.60-5.80); White Blood Count 8.8 X10*3/uL (4.8-10.8)
[2025-10-18 14:31] LABS: Ferritin 37 ng/mL (20-250); Iron 104 mcg/dL (45-160); Percent Iron Saturation 41 % (15-50); Total Iron Binding Capacity 251 mcg/dL (228-428); Unsaturated Iron Binding 147 ug/dL
== END 2025-10-18 13:03 | disposition home or self-care (01) ==
LOC: HO.BBR 13:02
PROVIDERS: PCP Family Medicine; Visit Provider Internal Medicine Medical Oncology
DX: E83.110 Hereditary hemochromatosis (principal)
CPT/HCPCS: 36415; 82728; 83540; 85025